=== PATIENT | female | born 1975 | race American Indian/Alaskan Native ===

== ENCOUNTER 2018-11-09 23:35 | Emergency (ER) | payer OTHER ==
[2018-11-09] MEDS ORDERED: ADRENALINE P/F SUB-Q ONE (23:45)
[2018-11-09] MEDS ORDERED: NACL 0.9% 1000 ML 1,000 ML IV ONE (23:45)
[2018-11-09] MEDS ORDERED: SOLU-Medrol IV ONE (23:45)
[2018-11-09] MEDS ORDERED: PEPCID IV ONE (23:45)
[2018-11-09] MEDS ORDERED: BENADRYL IV ONE (23:45)
--- NOTE | 2018-11-09 23:52 | Emergency Department Report ---
ED Allergic Reaction HPI - General Chief complaint: Allergic Reaction Stated complaint: ALLERGIC REACTION Time Seen by Provider: 11/09/18 23:42 Source: patient Mode of arrival: Ambulatory Limitations: No Limitations - History of Present Illness Initial Comments: 43 yo female presents the ED with allergic reaction. Patient says it had several allergic reaction episodes in the past with unknown trigger. Patient states tonight she began having itching, rash, swelling to her lips and face, sensation of her throat closing. Patient states she took one Benadryl at home prior to ED arrival. MD Complaint: allergic reaction -: This evening Exposure: unknown Symptoms: rash, itching, facial swelling Severity: moderate Treatment Prior to Arrival: benadryl Previous Allergy History: angioedema - Related Data Previous Rx's Medication Instructions Recorded Last Taken Type EPINEPHrine [Epipen] 0.3 mg IJ ONCE PRN #1 auto.injct 11/10/18 Unknown Rx predniSONE [Prednisone] 50 mg PO DAILY #5 tablet 11/10/18 Unknown Rx Allergies Allergy/AdvReac Type Severity Reaction Status Date / Time No Known Allergies Allergy Verified 11/10/18 00:01 ED Review of Systems ROS: Stated complaint: ALLERGIC REACTION Other details as noted in HPI Comment: All other systems reviewed and negative Constitutional: denies: chills, fever Respiratory: denies: wheezing Cardiovascular: denies: chest pain Gastrointestinal: denies: nausea, vomiting Skin: rash, pruritus ED Past Medical Hx - Medications Home Medications: Home Medications Medication Instructions Recorded Confirmed Last Taken Type EPINEPHrine [Epipen] 0.3 mg IJ ONCE PRN #1 auto.injct 11/10/18 Unknown Rx predniSONE [Prednisone] 50 mg PO DAILY #5 tablet 11/10/18 Unknown Rx ED Physical Exam - General Limitations: No Limitations General appearance: alert - Head Head exam: Present: atraumatic, normocephalic - Eye Eye exam: Present: normal appearance - ENT ENT exam: Present: mucous membranes moist, other (posterior oropharynx normal, no swelling present, tongue normal, uvula midline; mild swelling to lips) - Neck Neck exam: Present: normal inspection - Respiratory Respiratory exam: Present: normal lung sounds bilaterally. Absent: respiratory distress, wheezes, stridor - Cardiovascular Cardiovascular Exam: Present: regular rate, normal rhythm - GI/Abdominal GI/Abdominal exam: Present: soft. Absent: distended, tenderness - Extremities Exam Extremities exam: Present: normal inspection - Neurological Exam Neurological exam: Present: alert, oriented X3 - Psychiatric Psychiatric exam: Present: normal affect, normal mood - Skin Skin exam: Present: rash, urticaria ED Course - Reevaluation(s) Reevaluation #1: 11/10/18 00:49 Pt asleep, appears comfortable. No distress Reevaluation #2: 11/10/18 02:12 Pt remains comfortable. Facial swelling resolved. ED Medical Decision Making - Medical Decision Making 43-year-old female with allergic reaction. IV fluids, Benadryl, following Medrol, Pepcid, epinephrine given. Symptoms immediately improved following medication administration. Patient observed in ED 3 hours. Patient feels well at this time, is ready to go home. Patient no respiratory distress. Will discharge with prescription for prednisone and EpiPen. Outpatient follow-up advised. Return precautions given. - Differential Diagnosis anaphylaxis, food allergy, urticaria Critical Care Time: Yes Critical care time in (mins) excluding proc time.: 30 Critical care attestation.: If time is entered above; I have spent that time in minutes in the direct care of this critically ill patient, excluding procedure time. Critical Care Time: 30 min ED Disposition Clinical Impression: Allergic reaction Disposition: - TO HOME OR SELFCARE Is pt being admited?: No Condition: Stable Instructions: Urticaria (ED), Food Allergy (ED), Anaphylaxis (ED), Allergies (ED) Prescriptions: EPINEPHrine [Epipen] 0.3 mg IJ ONCE PRN #1 auto.injct PRN Reason: Allergic Reaction predniSONE [Prednisone] 50 mg PO DAILY #5 tablet Referrals: EAMON BARTHOLOMEW MD [Referring] - 3-5 Days Time of Disposition: 02:29
[2018-11-10] MEDS ORDERED: ZOFRAN ONE (00:01)
[2018-11-10 02:44] VITALS: BP 100/55
== END 2018-11-10 02:47 | disposition home or self-care (01) ==
LOC: ED 23:35
DX: T78.40XA Allergy, unspecified, initial encounter (principal); X58.XXXA Exposure to other specified factors, initial encounter
CPT/HCPCS: 96361; 96372; 96374; 96375; 99291; J0171; J1200; J2405; J2930; J7030